=== PATIENT | female | born 1975 | race American Indian/Alaskan Native ===

== ENCOUNTER 2021-07-23 14:21 | Emergency (ER) | payer MEDICAID, OTHER ==
[2021-07-23] MEDS ORDERED: IBUPROFEN 600 MG TAB PO ONE (16:10)
[2021-07-23] MEDS ORDERED: ACETAMINOPHEN 325 MG TAB PO ONE (16:10)
--- NOTE | 2021-07-23 16:10 | Emergency Department Report ---
ED General Adult HPI - General Chief complaint: Back Pain/Injury Stated complaint: Lower back pain Time Seen by Provider: 07/23/21 15:40 Source: patient Mode of arrival: Ambulatory Limitations: No Limitations - History of Present Illness Initial comments: During the history and physical examination, I am chaperoned by Bethany Jones Patient is a 46-year-old female. She states that she is . She presents to the ER today with a complaint of paraspinal lower back pain and parathoracic muscular back pain present for 1 month. The symptoms started after lifting heavy objects while at work. The patient reports that she has not reported this injury to her immediate work tipple supervisor or her employer. She denies headache, neck pain, chest pain, abdominal pain, shortness of breath, nausea, vomiting diarrhea, bladder or bowel retention incontinence or saddle anesthesia, but she does report that the muscular back pain is occasionally so strong that it feels like it makes her legs give out. Patient denies fever and IV drug use. -: week(s), month(s) Location: back Radiation: non-radiation Quality: aching Consistency: constant Improves with: rest Worsens with: movement - Related Data Previous Rx's Medication Instructions Recorded Last Taken Type Acetaminophen [Non-Aspirin Extra 650 mg PO Q6HR PRN #30 tablet 07/23/21 Unknown Rx Strength] Ibuprofen [Motrin] 600 mg PO Q8H PRN #30 tablet 07/23/21 Unknown Rx methOCARBAMOL [Robaxin TAB] 1,500 mg PO TID PRN #30 tab 07/23/21 Unknown Rx Allergies Allergy/AdvReac Type Severity Reaction Status Date / Time No Known Allergies Allergy Verified 11/28/13 02:42 ED Review of Systems ROS: Stated complaint: B/S/LEGS PAIN Other details as noted in HPI Comment: All other systems reviewed and negative Musculoskeletal: back pain, myalgia Neurological: denies: weakness, numbness, paresthesias ED Past Medical Hx - Social History Smoking Status: Current Every Day Smoker Substance Use Type: None - Medications Home Medications: Home Medications Medication Instructions Recorded Confirmed Last Taken Type Acetaminophen [Non-Aspirin Extra 650 mg PO Q6HR PRN #30 tablet 07/23/21 Unknown Rx Strength] Ibuprofen [Motrin] 600 mg PO Q8H PRN #30 tablet 07/23/21 Unknown Rx methOCARBAMOL [Robaxin TAB] 1,500 mg PO TID PRN #30 tab 07/23/21 Unknown Rx ED Physical Exam - General Limitations: No Limitations General appearance: alert, in no apparent distress - Head Head exam: Present: atraumatic, normocephalic - Eye Eye exam: Present: normal appearance, EOMI. Absent: nystagmus - ENT ENT exam: Present: normal exam, normal orophraynx, mucous membranes moist, normal external ear exam - Neck Neck exam: Present: normal inspection, full ROM. Absent: tenderness, meningismus - Respiratory Respiratory exam: Present: normal lung sounds bilaterally. Absent: respiratory distress, wheezes, rales, rhonchi, stridor, decreased breath sounds - Cardiovascular Cardiovascular Exam: Present: regular rate, normal rhythm, normal heart sounds. Absent: bradycardia, tachycardia, irregular rhythm, systolic murmur, diastolic murmur, rubs, gallop - GI/Abdominal GI/Abdominal exam: Present: soft. Absent: distended, tenderness, guarding, rebound, rigid, pulsatile mass - Extremities Exam Extremities exam: Present: normal inspection, full ROM, other (2+ pulses noted in the bilateral upper and lower extremities. There is no palpable cord. negative Homans sign. Muscular compartments are soft. The pelvis is stable.). Absent: pedal edema, calf tenderness - Back Exam Back exam: Present: normal inspection, muscle spasm, paraspinal tenderness. Absent: tenderness, CVA tenderness (R), CVA tenderness (L) - Neurological Exam Neurological exam: Present: alert, oriented X3, normal gait, reflexes normal, other (No facial droop. Tongue midline. Extraocular movements intact bilaterally. Facial sensation intact to light touch in V1, V2, V3 distribution bilaterally. 5 and a 5 strength in 4 extremities. Sensation intact to light touch in 4 extremities.). Absent: motor sensory deficit (Sensation intact to light touch and proprioception in the bilateral upper and lower extremities) - Psychiatric Psychiatric exam: Present: normal affect, normal mood - Skin Skin exam: Present: warm, dry, intact, normal color. Absent: rash ED Course Vital Signs 07/23/21 07/23/21 14:47 17:40 Temperature 98 F 97.8 F Pulse Rate 81 78 Respiratory 16 16 Rate Blood Pressure 133/81 121/88 [Left] O2 Sat by Pulse 100 100 Oximetry ED Medical Decision Making - Lab Data Vital Signs 07/23/21 14:47 Temperature 98 F Pulse Rate 81 Respiratory 16 Rate Blood Pressure 133/81 [Left] O2 Sat by Pulse 100 Oximetry - Medical Decision Making Differential diagnosis, including but not limited to: Muscular sprain/strain, muscle spasm Assessment and plan: 46-year-old female who reports that she is not , who denies IV drug use and denies fever, presenting to the ER today with 1 month of reproducible paralumbar muscular back pain, after heavy lifting at work. She is ambulatory, stands with a steady gait, she has not experienced bladder or bowel retention incontinence or saddle anesthesia, and she has appropriate strength, sensation and reflexes. Patient educated as to the natural history of musculoskeletal pain. She is further advised to follow-up with her outpatient tipple supervisor to pursue Worker's Compensation physician. In the meantime, start Tylenol, Motrin, rest, ice, compression elevation, consider outpatient complementary therapy, return precautions are reviewed. All questions answered Critical care attestation.: If time is entered above; I have spent that time in minutes in the direct care of this critically ill patient, excluding procedure time. ED Disposition Clinical Impression: Strain of muscle, fascia and tendon of lower back, initial encounter Disposition: HOME / SELF CARE / HOMELESS Is pt being admited?: No Does the pt Need Aspirin: No Condition: Good Instructions: Lumbar Sprain, RICE Therapy for Routine Care of Injuries Additional Instructions: Pain typically gets worse before it gets better after lower back sprain/strain. Recommend that patient follow-up with her work tipple supervisor, and informed him that she sustained an injury while at work, and follow her employer's protocol for work related injuries, and Worker's Compensation injuries. Your employer an immediate tipple supervisor can better characterize this and described this to you. Please take the prescribed pain medications as needed and directed, patient may also alternate ice packs and heat packs as needed for physical pain. Patient would likely need to initiate physical therapy and or rehabilitation to improve the muscles and musculoskeletal tissue in the lower back. The patient may follow-up with a primary care doctor, spine physician, or orthopedic physician to coordinate this. Patient may also take the prescribed pain medications as needed and directed, and may also pursue complementary therapies, such as acupuncture, massage, or aquatic therapy. Please return to the emergency room right away with new pain, worsened pain, migration of pain, projectile vomiting, change in mental status, confusion, inability tolerate liquid feeds, new, worsened or different symptoms not present on the initial emergency room evaluation Patient may return to work and light duty, the patient is not cleared to resume the duty lifting until she sees her primary care doctor, or one of the listed physicians for outpatient follow-up, or Worker's Compensation physician patient may also take the Robaxin/methocarbamol as needed for physical pain and back pain. Please exercise caution when taking this medication, as it can be sedating. Do not drive, consume alcohol, or make important decisions if patient elects to take this medication Prescriptions: Ibuprofen [Motrin] 600 mg PO Q8H PRN #30 tablet PRN Reason: Pain Acetaminophen [Non-Aspirin Extra Strength] 650 mg PO Q6HR PRN #30 tablet PRN Reason: Pain , Severe (7-10) methOCARBAMOL [Robaxin TAB] 1,500 mg PO TID PRN #30 tab PRN Reason: Pain Referrals: [facility] [Provider Group] - 3-5 Days [facility] [Provider Group] - 3-5 Days [facility] [Provider Group] - 3-5 Days Forms: Work/School Release Form(ED)
[2021-07-23 17:45] VITALS: BP 121/88
== END 2021-07-23 17:45 | disposition home or self-care (01) ==
LOC: ED 14:21
DX: S39.012A Strain of muscle, fascia and tendon of lower back, initial encounter (principal); F17.200 Nicotine dependence, unspecified, uncomplicated; X58.XXXA Exposure to other specified factors, initial encounter; Y93.89 Activity, other specified; Y92.89 Other specified places as the place of occurrence of the external cause; Y99.8 Other external cause status
CPT/HCPCS: 99282